=== PATIENT | male | born 1940 | race Caucasian/White ===

== ENCOUNTER 2016-09-10 10:53 | Emergency (ER) | payer OTHER, BC ==
[~2016-09-10] VITALS: Ht 188 cm; Wt 81.3 kg
[~2016-09-10 10:53] MED LIST: ACYCLOVIR400 MG PO; ATORVASTATIN CA80 MG PO; CYMBALTA60 MG PO; HYOSCYAMINE0.125 M1 SL; LORAZEPAM0.5 MG PO; OMEPRAZOLE20 MG PO; ONDANSETRON HCL8 MG PO; PAROXETINE HCL40 MG PO; POLYETHYLENE GL17 GM PO; PREDNISONE50 MG PO; PROCHLORPERAZIN10 MG PO; TRAZODONE HCL50 MG PO
[2016-09-10 12:10] LABS: BASOPHIL COUNT 0.1 K/uL (0-0.1); EOSINOPHIL (%) 2.6 % (0-5); EOSINOPHIL COUNT 0.3 K/uL (0-0.3); IMMATURE GRANULOCYTE (%) 0.3 % (0.0-0.7); INSTRUMENT ABS NEUTROPHIL CT 3.6 K/uL; LYMPHOCYTE COUNT 6.2 K/uL (1.0-2.8); MCH 32.4 PG (29.0-34.0); MCHC 32.4 G/DL (30.0-36.0); MEAN PLAT.VOLUME 9.9 uM^3 (9.0-12.4); MONOCYTE (%) 12.9 % (3-12); MONOCYTE COUNT 1.5 K/uL (0-0.8); NEUTROPHIL (%) 30.4 % (45-76); NEUTROPHIL COUNT 3.6 K/uL (1.8-6.4); PLATELET COUNT 270 K/uL (156-360); RBC DIS.WIDTH-CV 13.1 % (11.8-14.6); RBC DIS.WIDTH-SD 48.4 % (39-53); WHITE BLOOD COUNT 11.7 K/uL (4.1-10.2)
[2016-09-10 12:19] LABS: CHLORIDE 105 mEq/L (99-109); POTASSIUM 4.6 mEq/L (3.7-5.4); SODIUM 140 mEq/L (136-147)
[2016-09-10 12:20] LABS: D-DIMER ELISA 0.29 mg/L FEU (< 0.57); GLUCOSE 96 mg/dL (70-99); INTER. NORMALIZED RATIO 1.1; PROTHROMBIN TIME 10.7 (9.2-11.2)
[2016-09-10 12:22] LABS: ANION GAP 9 MEQ/L (2-14)
[2016-09-10 12:24] LABS: GFR ESTIMATE (CALCULATED) 57 mL/min/
[2016-09-10 12:25] LABS: UREA NITROGEN (BUN) 26 mg/dL (9-23)
[2016-09-10 12:29] LABS: TROP-I INTERPRETATION NEGATIVE; TROPONIN-I < 0.01 ng/mL (0.0-0.30)
[2016-09-10 15:15] VITALS: BP 135/76
== END 2016-09-10 15:15 | disposition left against medical advice (07) ==
LOC: EME 10:53
PROVIDERS: Emergency Medicine
DX: R06.02 Shortness of breath (principal); R22.1 Localized swelling, mass and lump, neck; Z85.71 Personal history of Hodgkin lymphoma
CPT/HCPCS: 71010; 71275; 80048; 84484; 85025; 85379; 85610; 93005; 99281; 99285; J7030

== ENCOUNTER 2017-03-11 10:53 | Emergency (ER) | payer OTHER, BC ==
[~2017-03-11] VITALS: Ht 188 cm; Wt 81.6 kg
[2017-03-11] MEDS ORDERED: TYLENOL WITH C1 EACH PO (13:55)
[2017-03-11 14:05] VITALS: BP 126/75
== END 2017-03-11 14:07 | disposition home or self-care (01) ==
LOC: EME 10:53
DX: S30.0XXA Contusion of lower back and pelvis, initial encounter (principal); S39.012A Strain of muscle, fascia and tendon of lower back, initial encounter; W01.0XXA Fall on same level from slipping, tripping and stumbling without subsequent striking against object, initial encounter; Y92.814 Boat as the place of occurrence of the external cause; Z85.9 Personal history of malignant neoplasm, unspecified; Z87.891 Personal history of nicotine dependence
CPT/HCPCS: 72100; 99281; 99284

== ENCOUNTER 2017-09-02 12:07 | Emergency (ER) | payer OTHER, BC ==
[~2017-09-02] VITALS: Ht 188 cm; Wt 77.6 kg
[~2017-09-02 12:07] MED LIST changes: +TYLENOL WITH C1 EACH PO
[2017-09-02 12:51] LABS: BASOPHIL (%) 0.5 % (0-1); BASOPHIL COUNT 0.1 K/uL (0-0.1); EOSINOPHIL (%) 1.4 % (0-5); EOSINOPHIL COUNT 0.2 K/uL (0-0.3); HEMATOCRIT 41.2 % (38.0-50.0); HEMOGLOBIN 13.3 G/DL (12.5-16.6); IMMATURE GRANULOCYTE (%) 0.6 % (0.0-0.7); LYMPHOCYTE (%) 41.1 % (15-42); LYMPHOCYTE COUNT 5.3 K/uL (1.0-2.8); MCH 30.2 PG (29.0-34.0); MCHC 32.3 G/DL (30.0-36.0); MONOCYTE (%) 18.2 % (3-12); MONOCYTE COUNT 2.4 K/uL (0-0.8); NEUTROPHIL (%) 38.2 % (45-76); PLATELET COUNT 386 K/uL (156-360); RBC DIS.WIDTH-CV 13.5 % (11.8-14.6); RBC DIS.WIDTH-SD 46.6 % (39-53)
[2017-09-02 12:55] LABS: MCV 93.6 FL (86-99)
[2017-09-02 13:02] LABS: CHLORIDE 100 mEq/L (99-109); POTASSIUM 4.3 mEq/L (3.7-5.4); SODIUM 136 mEq/L (136-147)
[2017-09-02 13:04] LABS: GLUCOSE 107 mg/dL (70-99)
[2017-09-02 13:08] LABS: CREATININE 1.1 mg/dL (0.6-1.3); GFR ESTIMATE (CALCULATED) > 59 mL/min/ (58.99-99999)
[2017-09-02 13:09] LABS: UREA NITROGEN (BUN) 15 mg/dL (9-23)
[2017-09-02 15:17] LABS: APPEARANCE CLEAR ((CLEAR)); BILIRUBIN NEGATIVE; BLOOD NEGATIVE; COLOR YELLOW ((YELLOW)); GLUCOSE (STRIP) NEGATIVE; KETONES NEGATIVE; LEUKOCYTES NEGATIVE; NITRITE NEGATIVE; PROTEIN (STRIP) 30; SPECIFIC GRAVITY 1.023 (1.000-1.030); UCUL ADDED? NO
[2017-09-02 16:25] VITALS: BP 124/71
== END 2017-09-02 16:38 | disposition home or self-care (01) ==
LOC: EME 12:07
DX: E86.0 Dehydration (principal); C85.98 Non-Hodgkin lymphoma, unspecified, lymph nodes of multiple sites; Z92.21 Personal history of antineoplastic chemotherapy; Z87.891 Personal history of nicotine dependence
CPT/HCPCS: 71046; 80048; 81003; 83605; 85025; 87040; 99281; 99284; J7030; J7040